=== PATIENT | male | born 1950 | race Caucasian/White ===

== ENCOUNTER 2016-11-10 09:54 | Emergency (ER) | payer OTHER ==
[2016-11-10 10:04] VITALS: TEMP 98.9; BMI 27.4
--- NOTE | 2016-11-10 11:00 | PDOC ---
History of Present Illness - General History Source: Patient Exam Limitations: No Limitations - History of Present Illness Initial Comments: 11/10/16 11:05 The patient is a 66 year old male with a significant past medical history of hypertension, hyperlipidemia, kidney cancer (s/p partial resection) and diabetes who presents to the ED sent by PCP for fever and left lower extremity redness and swelling for 2 days. Patient states that he developed a fever 2 days ago and reports taking 800 mg of Ibuprofen. Patient states that he noticed left lower extremity redness and swelling. Patient reports taking a baby aspirin daily and denies any hx of blood clots. Patient denies any trauma to the area. He denies any recent fall or trauma. The patient denies any sweats, or chills. The patient denies nausea, vomiting, or diarrhea. The patient denies shortness of breath or chest pain. SH: non smoker, no alcohol or illicit drug use. Allergy: penicillin PCP: Dr. Kamilla Hickman <Narcisa Cramer - Last Filed: 11/10/16 11:16> - General History Source: Patient, Old Records Exam Limitations: No Limitations <Loreta Ham - Last Filed: 11/10/16 12:59> - General Chief Complaint: Pain Stated Complaint: LT FOOT SWELLING (PCP SENT) Time Seen by Provider: 11/10/16 10:17 Past History <Narcisa Cramer - Last Filed: 11/10/16 11:16> - Past Medical History Cancer: Yes (KIDNEY) Diabetes: Yes HTN: Yes Hypercholesterolemia: Yes - Psycho/Social/Smoking Cessation Hx Anxiety: No Suicidal Ideation: No Smoking History: Never smoked Have you smoked in the past 12 months: No Information on smoking cessation initiated: No Hx Alcohol Use: No Drug/Substance Use Hx: No Substance Use Type: None <Loreta Ham - Last Filed: 11/10/16 12:59> - Past Medical History Allergies/Adverse Reactions: Allergies Allergy/AdvReac Type Severity Reaction Status Date / Time Penicillins AdvReac Verified 11/10/16 10:01 Home Medications: Ambulatory Orders Amlodipine Besylate 5 mg PO DAILY 06/11/15 Atorvastatin Ca [Lipitor -] 10 mg PO HS 06/11/15 Bisacodyl [Dulcolax -] 5 mg PO DAILY 06/11/15 Glyburide/Metformin HCl [Glucovance 2.5-500 mg Tablet] 1 each PO DAILY 06/11/15 Lisinopril/Hydrochlorothiazide [Lisinopril-Hctz 20-12.5 mg Tab] 1 each PO DAILY 06/11/15 ASA - 81 mg PO DAILY 11/10/16 Clindamycin [Cleocin -] 300 mg PO TID #21 capsule 11/10/16 Review of Systems - Review of Systems Able to Perform ROS?: Yes Comments:: 11/10/16 11:05 GENERAL/CONSTITUTIONAL: No fever or chills. No weakness. HEAD, EYES, EARS, NOSE AND THROAT: No change in vision. No ear pain or discharge. No sore throat. CARDIOVASCULAR: No chest pain or shortness of breath. RESPIRATORY: No cough, wheezing, or hemoptysis. GASTROINTESTINAL: No nausea, vomiting, diarrhea or constipation. GENITOURINARY: No dysuria, frequency, or change in urination. MUSCULOSKELETAL: (+)left lower extremity redness and swelling. No joint or muscle swelling or pain. No neck or back pain. SKIN: No rash NEUROLOGIC: No headache, vertigo, loss of consciousness, or change in strength/ sensation. ENDOCRINE: No increased thirst. No abnormal weight change. HEMATOLOGIC/LYMPHATIC: No anemia, easy bleeding, or history of blood clots. ALLERGIC/IMMUNOLOGIC: No hives or skin allergy. <Narcisa Cramer - Last Filed: 11/10/16 11:16> *Physical Exam - Vital Signs Last Vital Signs Temp Pulse Resp BP Pulse Ox 98.9 F 76 18 143/88 100 11/10/16 10:01 11/10/16 10:01 11/10/16 10:01 11/10/16 10:01 11/10/16 10:01 - Physical Exam Comments: 11/10/16 11:15 GENERAL: Awake, alert, and fully oriented, in no acute distress HEAD: No signs of trauma EYES: PERRLA, EOMI, sclera anicteric, conjunctiva clear ENT: Auricles normal inspection, hearing grossly normal, nares patent, oropharynx clear without exudates. Moist mucosa NECK: Normal ROM, supple, no lymphadenopathy, JVD, or masses LUNGS: Breath sounds equal, clear to auscultation bilaterally. No wheezes, and no crackles HEART: Regular rate and rhythm, normal S1 and S2, no murmurs, rubs or gallops ABDOMEN: (+) obese. Soft, nontender, normoactive bowel sounds. No guarding, no rebound. No masses EXTREMITIES: (+) Circumferential erythema of left lower extremity with +1 edema. Normal range of motion. No clubbing or cyanosis. No cords. NEUROLOGICAL: Cranial nerves II through XII grossly intact. Normal speech, normal gait SKIN: Warm, Dry, normal turgor, no rashes or lesions noted. <Narcisa Cramer - Last Filed: 11/10/16 11:16> - Vital Signs Last Vital Signs Temp Pulse Resp BP Pulse Ox 98.9 F 76 18 143/88 100 11/10/16 10:01 11/10/16 10:01 11/10/16 10:01 11/10/16 10:01 11/10/16 10:01 <Loreta Ham - Last Filed: 11/10/16 12:59> ED Treatment Course - LABORATORY CBC & Chemistry Diagram: 11/10/16 11:40 11/10/16 11:40 <Loreta Ham - Last Filed: 11/10/16 12:59> Medical Decision Making - Medical Decision Making 11/10/16 12:40 66-year-old male with history of hypertension, diabetes presents the emergency Department with complaints of 3 day history of left lower extremity pain, redness and swelling. There is a history of trauma in the left lower extremity however there is no hardware in the leg. Differential diagnosis includes but is not limited to: DVT, cellulitis, sepsis, electrolyte abnormality, toxic/ metabolic derangement. Plan: 1. Labs 2. Plain films 3. Lower extremity duplex to rule out DVT 4. Pain management 5. Observe and reevaluate Addendum: Labs were reviewed and are noted in the EMR. The white blood cell count is elevated at 12.8 however the lactate is negative. The plain films are negative for gas in the soft tissue or any kind of acute bony injury. Vascular study is negative for DVT. The patient received clindamycin in the emergency department. Will discharge on clindamycin 300 mg 3 times a day for one week. Follow-up with primary care physician and return to the emergency department if symptoms persist, worsen, or new symptoms arise. <Loreta Ham - Last Filed: 11/10/16 12:59> *DC/Admit/Observation/Transfer - Attestations Scribe Attestion: 11/10/16 11:06 Documentation prepared by NANNETTE Wilde, acting as internist medical doctor md for Loreta Ham MD. <Narcisa Cramer - Last Filed: 11/10/16 11:16> - Discharge Dispostion Admit: No - Attestations Physician Attestion: 11/10/16 12:42 I, Dr. Loreta Ham, attest that the scribes documentation that appears above has been prepared under my direction and personally reviewed by me in its entirety. I confirmed that the note above accurately reflects all work, treatment, procedures, and medical decision-making performed by me. <Loreta Ham - Last Filed: 11/10/16 12:59> Diagnosis at time of Disposition: Cellulitis and abscess of left leg - Discharge Dispostion Disposition: HOME Condition at time of disposition: Stable - Prescriptions Prescriptions: Clindamycin [Cleocin -] 300 mg PO TID #21 capsule - Referrals Referrals: Angélica Hickman [Primary Care Provider] - - Patient Instructions Printed Discharge Instructions: DI for Cellulitis -- Adult Additional Instructions: You are being treated for cellulitis with clindamycin 300 mgone tablet 3 times per day for one week. He may take Tylenol or ibuprofen as needed for your pain. Please follow-up with your primary care physician within the next 3 days and return to the emergency department if your symptoms persist, worsen, or new symptoms arise.
[2016-11-10 11:47] LABS: BASOPHIL 0.7 % (0-2.0); EOSINOPHIL 1.4 % (0-4.5); MCH 29.1 pg (25.7-33.7); MCHC 33.7 g/dl (32.0-35.9); MEAN CELL VOLUME 86.4 fl (80-96); MEAN PLT VOLUME 8.8 fl (7.5-11.1); NEUTROPHILS 69.5 % (42.8-82.8); PLATELET COUNT 217 K/MM3 (134-434); RDW 13.6 % (11.9-15.9); WHITE BLOOD COUNT 12.8 K/mm3 (4.0-10.0)
[2016-11-10] MEDS ORDERED: CLINDAMYCIN IVPB 300 MG in DEXTROSE 5%-WATER - 48 ML IVPB ONE (11:52)
[2016-11-10 11:56] LABS: URINE APPEARANCE CLEAR; URINE BILIRUBIN NEGATIVE (NEGATIVE); URINE BLOOD NEGATIVE (NEGATIVE); URINE COLOR LTYELLOW; URINE GLUCOSE (UA) 3+ (NEGATIVE); URINE KETONE TRACE (NEGATIVE); URINE NITRITE NEGATIVE (NEGATIVE); URINE PROTEIN NEGATIVE (NEGATIVE); URINE UROBILINOGEN NEGATIVE E.U./dl (0.2-1.0)
[2016-11-10 12:00] LABS: URINE LEUK ESTERASE 1+ (NEGATIVE)
[2016-11-10 12:10] LABS: URINE BACTERIA FEW /hpf (NONE SEEN); URINE MUCUS RARE; URINE RBC 2 /hpf (0-3); URINE WBC 36 /hpf (3-5)
[2016-11-10 12:11] LABS: ALBUMIN 3.8 g/dl (3.4-5.0); ALK PHOS 83 U/L (45-117); ANION GAP 9 (8-16); BILIRUBIN,TOTAL 1.4 mg/dL (0.2-1.0); CALCIUM 8.8 mg/dL (8.5-10.1); CO2 26 mmol/L (21-32); COCKROFT - GAULT 101.74; CREATININE 0.8 mg/dL (0.7-1.3); GLUCOSE,RANDOM 232 mg/dL (74-106); SGPT/ALT 43 U/L (12-78); TOT PROT 7.3 g/dl (6.4-8.2)
[2016-11-10 12:12] LABS: MAGNESIUM 2.2 mg/dL (1.8-2.4); SGOT/AST 44 U/L (15-37)
[2016-11-10 13:38] VITALS: BP 138/85; PULSE 74
--- NOTE | 2016-11-13 11:40 | EKG ---
Test Reason : Blood Pressure : / mmHG Vent. Rate : 069 BPM Atrial Rate : 069 BPM P-R Int : 186 ms QRS Dur : 092 ms QT Int : 388 ms P-R-T Axes : 001 019 033 degrees QTc Int : 415 ms NORMAL SINUS RHYTHM NORMAL ECG WHEN COMPARED WITH ECG OF 11-JUN-2015 17:17, NO SIGNIFICANT CHANGE WAS FOUND Confirmed by PARADISE RESENDEZ MD ([id number]) on 11/13/2016 11:39:33 AM Referred By: Confirmed By:PARADISE RESENDEZ MD
== END 2016-11-10 13:38 | disposition home or self-care (01) ==
LOC: JER 09:54
DX: L03.116 Cellulitis of left lower limb (principal); I10 Essential (primary) hypertension; E11.9 Type 2 diabetes mellitus without complications; Z79.84 Long term (current) use of oral hypoglycemic drugs; E78.5 Hyperlipidemia, unspecified; Z85.528 Personal history of other malignant neoplasm of kidney
CPT/HCPCS: 36415; 71020-TC; 73590-TC-LT; 80053; 81003; 81015; 83605; 83735; 84100; 85025; 87040; 87086; 87186; 93005; 93010; 93971-TC; 96365; 99282-25

== ENCOUNTER 2017-08-13 09:03 | Emergency (ER) | payer OTHER ==
[2017-08-13 09:20] VITALS: TEMP 98.8; BMI 33.3
--- NOTE | 2017-08-13 09:37 | PDOC ---
History of Present Illness - General Chief Complaint: Respiratory Stated Complaint: FEVER, COLD Time Seen by Provider: 08/13/17 09:34 History Source: Patient Exam Limitations: No Limitations - History of Present Illness Initial Comments: 08/13/17 09:43 The patient is a 66 year old male with a significant past medical history of hypertension, hyperlipidemia, kidney cancer (s/p partial resection) and diabetes who presents to the ED sent by PCP for cough with yellow sputum for the past 2 weeks. Patient states that his sob and cough gets worse at night when he's laying down in bed. Recently finished a course of Azithromycin and Tamiflu on Saturday. PCP: Kamilla Hickman 08/13/17 11:27 Past History - Past Medical History Allergies/Adverse Reactions: Allergies Allergy/AdvReac Type Severity Reaction Status Date / Time Penicillins AdvReac Verified 08/13/17 09:16 Home Medications: Ambulatory Orders Amlodipine Besylate 5 mg PO DAILY 06/11/15 Atorvastatin Ca [Lipitor -] 10 mg PO HS 06/11/15 Bisacodyl [Dulcolax -] 5 mg PO DAILY 06/11/15 Glyburide/Metformin HCl [Glucovance 2.5-500 mg Tablet] 1 each PO DAILY 06/11/15 Lisinopril/Hydrochlorothiazide [Lisinopril-Hctz 20-12.5 mg Tab] 1 each PO DAILY 06/11/15 Guaifenesin/Dextromethorphan [Robitussin Cough-Chest Dm Liq] 237 ml PO DAILY Levofloxacin [Levaquin] 250 mg PO DAILY #2 tablet 08/13/17 Omeprazole 40 mg PO DAILY 08/13/17 Cancer: Yes (KIDNEY) Diabetes: Yes HTN: Yes Hypercholesterolemia: Yes - Suicide/Smoking/Psychosocial Hx Smoking History: Never smoked Have you smoked in the past 12 months: No Hx Alcohol Use: No Drug/Substance Use Hx: No Substance Use Type: None Review of Systems - Review of Systems Able to Perform ROS?: Yes Is the patient limited Kiswahili proficient: No Constitutional: No: Symptoms Reported HEENTM: No: Symptoms Reported Respiratory: Yes: Cough Cardiac (ROS): No: Symptoms Reported ABD/GI: No: Symptoms Reported : No: Symptoms Reported Musculoskeletal: No: Symptoms Reported Integumentary: No: Symptoms Reported Neurological: No: Symptoms reported All Other Systems: Reviewed and Negative *Physical Exam - Vital Signs Last Vital Signs Temp Pulse Resp BP Pulse Ox 98.8 F 66 19 159/98 98 08/13/17 09:16 08/13/17 09:16 08/13/17 09:16 08/13/17 09:16 08/13/17 09:16 - Physical Exam General Appearance: Yes: Nourished, Appropriately Dressed, Apparent Distress HEENT: positive: EOMI, CALLI, Normal ENT Inspection Neck: positive: Trachea midline. negative: Tender Respiratory/Chest: positive: Lungs Clear, Normal Breath Sounds. negative: Chest Tender, Respiratory Distress Cardiovascular: positive: Regular Rhythm, Regular Rate, S1, S2 Gastrointestinal/Abdominal: positive: Normal Bowel Sounds, Flat, Soft. negative : Tender Musculoskeletal: positive: Normal Inspection. negative: CVA Tenderness Extremity: positive: Normal Capillary Refill, Normal Inspection, Normal Range of Motion Integumentary: positive: Normal Color, Dry, Warm Neurologic: positive: Fully Oriented, Alert, Normal Mood/Affect, Normal Response ED Treatment Course - LABORATORY CBC & Chemistry Diagram: 08/13/17 10:08 08/13/17 10:08 Medical Decision Making - Medical Decision Making 08/13/17 12:41 Patient probably has residual symptoms from flu, already trreated with tamiflu and azithromycin Found to have UTI, likely from untreated diabetes. Given levaquin PO and prescription. ok to dc *DC/Admit/Observation/Transfer Diagnosis at time of Disposition: UTI (urinary tract infection) - Discharge Dispostion Disposition: HOME Admit: No - Prescriptions Prescriptions: Levofloxacin [Levaquin] 250 mg PO DAILY #2 tablet - Referrals - Patient Instructions Printed Discharge Instructions: DI for Urinary Tract Infection (UTI) Additional Instructions: Please take Levaquin once a day for the next two days. Follow up with your PCP within the next 3-4 days Come back to the ER for any new, worsening or concerning symptom. - Post Discharge Activity
--- NOTE | 2017-08-13 10:14 | PDOC ---
Attending Attestation - Resident Resident Name: Que Marin - ED Attending Attestation I have performed the following: I have examined & evaluated the patient, The case was reviewed & discussed with the resident, I agree w/resident's findings & plan, Exceptions are as noted <Mercedes Escobar - Last Filed: 08/13/17 10:13> - HPI HPI: 08/13/17 10:15 The patient is a 66 year old male with a significant PMH of HTN, HLD, kidney cancer (s/p partial resection), and diabetes who was sent by PCP to the emergency department for further evaluation of persistent cough productive of yellow sputum that began approximately 2 weeks ago. The patient reports he has finished course of tamiflu and azithromycin but productive cough is persistent. The patient is also complaining of shortness of breath and mucus production at night making it difficult for him to sleep. The patient denies chest pain, headache and dizziness. Denies fever, chills, nausea, vomit, diarrhea and constipation. Denies dysuria, frequency, urgency and hematuria. Allergies: NKA Past surgical history: None reported. Social history: No reported alcohol, drug, or cigarette use. PCP: Kamilla Hickman <Raya Griffiths - Last Filed: 08/13/17 10:22>
[2017-08-13 10:49] LABS: BASO % 0.3 % (0-2.0); EOS % 0.5 % (0-4.5); HEMATOCRIT 44.3 % (35.4-49); HEMOGLOBIN 14.8 GM/dL (11.7-16.9); LYMPH % 29.2 % (8-40); MCH 28.8 pg (25.7-33.7); MCHC 33.4 g/dl (32.0-35.9); MEAN CELL VOLUME 86.1 fl (80-96); MEAN PLT VOLUME 9.1 fl (7.5-11.1); MONO % 5.7 % (3.8-10.2); NEUT % 64.3 % (42.8-82.8); PLATELET COUNT 267 K/MM3 (134-434); RBC 5.15 M/mm3 (4.00-5.60); RDW 13.5 % (11.9-15.9)
[2017-08-13 10:59] LABS: ALBUMIN 3.8 g/dl (3.4-5.0); ALK PHOS 78 U/L (45-117); ANION GAP 6 (8-16); BILIRUBIN,TOTAL 1.3 mg/dL (0.2-1.0); BLOOD UREA NITROGEN 12 mg/dL (7-18); CALCIUM 8.6 mg/dL (8.5-10.1); CHLORIDE 106 mmol/L (98-107); CO2 29 mmol/L (21-32); CREATININE 0.8 mg/dL (0.7-1.3); GLUCOSE,RANDOM 225 mg/dL (74-106); SGOT/AST 38 U/L (15-37); SGPT/ALT 65 U/L (12-78); SODIUM 141 mmol/L (136-145)
[2017-08-13 11:46] LABS: URINE APPEARANCE CLOUDY; URINE BILIRUBIN NEGATIVE (NEGATIVE); URINE BLOOD NEGATIVE (NEGATIVE); URINE COLOR AMBER; URINE GLUCOSE (UA) NEGATIVE (NEGATIVE); URINE KETONE NEGATIVE (NEGATIVE); URINE NITRITE POSITIVE (NEGATIVE); URINE UROBILINOGEN 4.0 E.U/dl mg/dL (0.2-1.0)
[2017-08-13 12:05] LABS: URINE LEUK ESTERASE 3+ (NEGATIVE); URINE PROTEIN 2+ (NEGATIVE)
[2017-08-13 12:09] LABS: URINE BACTERIA MANY /hpf (NONE SEEN); URINE MUCUS MODERATE
[2017-08-13] MEDS ORDERED: ALBUTEROL SO4 0.083% IH SOL 2.5 MG/3 ML VIAL.NEB. NEB ONE ×2 (12:53→13:00)
[2017-08-13 13:46] VITALS: BP 176/93; PULSE 59
== END 2017-08-13 13:46 | disposition home or self-care (01) ==
LOC: JER 09:03
PROC: 3E0F7GC Introduction of Other Therapeutic Substance into Respiratory Tract, Via Natural or Artificial Opening (ICD-10-PCS; principal; 2017-08-13)
DX: N39.0 Urinary tract infection, site not specified (principal); J11.1 Influenza due to unidentified influenza virus with other respiratory manifestations; I10 Essential (primary) hypertension; E11.9 Type 2 diabetes mellitus without complications; Z85.528 Personal history of other malignant neoplasm of kidney
CPT/HCPCS: 36415; 71046-TC-FY; 80053; 81003; 81015; 85025; 94640; 99283-25